=== PATIENT | female | born 2000 | race Asian ===

== ENCOUNTER 2022-03-23 01:28 | Emergency (ER) | payer BC, SELFPAY ==
--- NOTE | ~2022-03-23 | US_ITS ---
EXAMINATION: US PELVIS CLINICAL INFORMATION: Pelvic pain, question ovarian cyst COMPARISON: None TECHNIQUE: Ultrasound of the pelvis is performed transabdominally. Patient refused transvaginal imaging. FINDINGS: Uterus: The uterus is anteverted and measures 6.8 x 2.8 x 4.1 cm. The double wall endometrial thickness is 0.4 mm. The uterus is smooth in contour and has normal myometrial echogenicity. No visible fibroid. Adnexa: Both ovaries are visualized and are normal in appearance. There is normal color flow to the adnexa. There is no pelvic ascites or fluid collection. Right ovary measures 3.0 x 2.1 x 2.0 cm. There is a dominant follicle in the right ovary measuring up to 2.1 cm. Left ovary measures 2.4 x 2.0 x 1.8 cm and appears unremarkable. US/US pelvic complete IMPRESSION: No acute findings identified.
[2022-03-23 01:35] VITALS: BP 123/84; PULSE 84; O2SAT 96
[2022-03-23 01:38] VITALS: BP 114/76; PULSE 77; RESP 16; TEMP 36.8; O2SAT 97; BMI 19.3
[2022-03-23 02:00] LABS: MANUAL DIFF FLAG NO
[2022-03-23 02:07] LABS: Basophils Percent Auto 0.5 % (0-2); Eosinophils Percent Auto 0.6 % (0-4); Hematocrit 39.1 % (37.0-47.0); Imm Gran Abs Auto 0.01 X10*3/uL (0.00-0.03); Imm Gran Pct Auto 0.2 % (0.0-0.4); Lymphocytes Absolute Auto 2.4 X10*3/uL (1.2-4.9); Lymphocytes Percent Auto 36.9 % (20-40); Mean Corpuscular HGB Conc 33.2 g/dl (31.0-35.0); Mean Corpuscular Hemoglobin 29.3 pg (27.0-33.0); Mean Corpuscular Volume 88.1 fL (80.0-98.0); Mean Platelet Volume 9.2 fL (9.4-12.3); Monocytes Absolute Auto 0.5 X10*3/uL (0.1-1.2); Monocytes Percent Auto 7.2 % (2-11); Neutrophils Absolute Auto 3.5 x10*3/uL (2.0-8.3); Neutrophils Percent Auto 54.6 % (45-73); Platelet Count 226 X10*3/uL (160-400); Red Blood Count 4.44 X10*6/uL (4.20-5.50); Red Cell Distribution Width 12.2 % (11.0-16.0); White Blood Count 6.4 X10*3/uL (4.8-10.8)
[2022-03-23 02:22] LABS: Anion Gap 13 (12-20); Blood Urea Nitrogen 15 mg/dL (9-16); Calcium 9.9 mg/dL (8.4-10.2); Carbon Dioxide 25 mmol/L (22-29); Chloride 104 mmol/L (96-108); Creatinine Clr Calc Pharmacy 78.4; Estimated Glomerular Filt Rate > 60; Glucose Random 104 mg/dL (60-115); Potassium 3.5 mmol/L (3.3-5.1); Sodium 138 mmol/L (135-145)
[2022-03-23 02:37] LABS: Appearance Urine Cloudy; Color Urine Yellow; Glucose Urine UA Negative (Negative); Leukocyte Esterase Urine Negative (Negative); Nitrite Urine Negative (Negative); UMIC TRIGGER UACC YES; Urine Blood Trace (Negative); Urine Ketones Negative (Negative); Urine Protein Negative (Neg-Trace)
[2022-03-23 02:39] LABS: UPreg QC Valid YES; Urine Pregnancy NEGATIVE (NEGATIVE)
[2022-03-23 02:40] LABS: Bacteria Urine None Seen (None Seen); Hyaline Casts Urine 0-2 /LPF (0-2); Squamous Epithelial Cell Urine 0-2 /HPF (0-2); WBC Urine 0-5 /HPF (0-5)
[2022-03-23 02:44] LABS: Influenza A PCR NEGATIVE (Negative); Influenza B PCR NEGATIVE (Negative); Resp Syncy Virus RNA Qual PCR NEGATIVE (Negative); SARS COV2 PCR INHOUSE NEGATIVE (Negative)
--- NOTE | 2022-03-23 03:18 | PC.NURSE ---
Patient attends [facility]. T/c received from [employer] to contact them at [phone] at the time of the patient's discharge to arrange transportation [facility].
[2022-03-23 03:24] VITALS: BP 115/72; PULSE 76; RESP 18; TEMP 36.6; O2SAT 97
--- NOTE | 2022-03-23 04:50 | ED_ITS ---
HPI - Abdominal Pain General Chief Complaint: Abdominal Pain Stated Complaint: abd pain Time Seen by Provider: 03/23/22 04:09 Source: patient Mode of arrival: ambulatory Limitations: no limitations History of Present Illness HPI narrative: Patient complaining of lower abdominal pain since 20:00 with nausea no vomiting or diarrhea history of similar pain in the past no workup done no urine symptoms no fever or chills Related Data Previous Rx's Medication Instructions Recorded ibuprofen 600 mg tablet 600 mg PO Q6H PRN fever or pain 03/23/22 #30 tabs Allergies Allergy/AdvReac Type Severity Reaction Status Date / Time No Known Allergies Allergy Verified 03/23/22 01:47 Review of Systems Review of Systems Yes all other systems are reviewed and are negative [facility] Social History Social History Advance Directives: No Advance Directives Information Provided: Yes Physical Exam ED Vital Signs: Vital Signs - 24 hr 03/23/22 01:38 03/23/22 03:24 Temperature 98.2 F 97.9 F Pulse Rate 77 76 Respiratory Rate 16 18 Blood Pressure 114/76 115/72 Pulse Oximetry 97 97 Oxygen Delivery Method Room Air Room Air BMI result Body Mass Index 19.3 Appearance: Alert. Oriented X3. No acute distress. Eyes: No pallor or icterus ENT: Pharynx normal. Oral Mucosa moist Neck: Normal inspection. Neck supple. CVS: Normal heart rate and rhythm. Pulses normal. Respiratory: No respiratory distress. Equal air entry bilateral, no wheezing/rales/rhonchi Abdomen: Soft and mild tenderness in epigastric area. Bowel sounds are present, no mass palpable, no CVA tenderness Skin: Skin warm and dry. Normal skin color. Normal skin turgor. Extremities: No lower extremity edema. No calf tenderness Neuro: Oriented X 3. No motor deficit. Medical Decision Making Medical Decision Making MDM Narrative: Labs stable ultrasound showed 2 cm right ovarian dominant follicle nonhemorrhagic no free fluid discharge patient home on ibuprofen Lab Data [facility] Lab Attestation statement: I reviewed the patient's lab results. 03/23/22 01:55 03/23/22 01:55 Labs: Lab Results 03/23/22 03/23/22 03/23/22 Range/Units 01:55 01:55 01:55 WBC 6.4 (4.8-10.8) X10*3/uL RBC 4.44 (4.20-5.50) X10*6/uL Hgb 13.0 (12.0-16.0) g/dl Hct 39.1 (37.0-47.0) % MCV 88.1 (80.0-98.0) fL MCH 29.3 (27.0-33.0) pg MCHC 33.2 (31.0-35.0) g/dl RDW 12.2 (11.0-16.0) % Plt Count 226 (160-400) X10*3/uL MPV 9.2 L (9.4-12.3) fL Immature Gran % (Auto) 0.2 (0.0-0.4) % Neut % (Auto) 54.6 (45-73) % Lymph % (Auto) 36.9 (20-40) % Colbert % (Auto) 7.2 (2-11) % Eos % (Auto) 0.6 (0-4) % Baso % (Auto) 0.5 (0-2) % Lymph # (Auto) 2.4 (1.2-4.9) X10*3/uL Colbert # (Auto) 0.5 (0.1-1.2) X10*3/uL Eos # (Auto) 0.0 (0.0-0.4) X10*3/uL Baso # (Auto) 0.0 (0.0-0.2) X10*3/uL Abs Immat Gran (auto) 0.01 (0.00-0.03) X10*3/uL Absolute Neuts (auto) 3.5 (2.0-8.3) x10*3/uL Absolute Nucleated RBC 0.000 (0.0-0.012) X10*3/uL Nucleated RBC % (auto) 0.0 (0.0-0.2) /100WBC Sodium 138 (135-145) mmol/L Potassium 3.5 (3.3-5.1) mmol/L Chloride 104 (96-108) mmol/L Carbon Dioxide 25 (22-29) mmol/L Anion Gap 13 (12-20) BUN 15 (9-16) mg/dL Creatinine 0.86 (0.5-1.4) mg/dL Estim Creat Clear Calc 78.4 Estimated GFR > 60 Random Glucose 104 (60-115) mg/dL Calcium 9.9 (8.4-10.2) mg/dL Urine Color Urine Appearance Urine pH (5.0-9.0) Ur Specific Kirby (1.005-1.025) Urine Protein (Neg-Trace) mg/dL Urine Glucose (UA) (Negative) mg/dL Urine Ketones (Negative) mg/dL Urine Blood (Negative) Urine Nitrite (Negative) Ur Leukocyte Esterase (Negative) Urine RBC (0-2) /HPF Urine WBC (0-5) /HPF Ur Squamous Epith Cells (0-2) /HPF Urine Bacteria (None Seen) Hyaline Casts (0-2) /LPF Urine Test (NEGATIVE) Influenza Type A (PCR) NEGATIVE (Negative) Influenza Type B (PCR) NEGATIVE (Negative) RSV RNA Qual (PCR) NEGATIVE (Negative) SARS-CoV-2 RNA (RT-PCR) NEGATIVE (Negative) 03/23/22 03/23/22 Range/Units 02:27 02:27 WBC (4.8-10.8) X10*3/uL RBC (4.20-5.50) X10*6/uL Hgb (12.0-16.0) g/dl Hct (37.0-47.0) % MCV (80.0-98.0) fL MCH (27.0-33.0) pg MCHC (31.0-35.0) g/dl RDW (11.0-16.0) % Plt Count (160-400) X10*3/uL MPV (9.4-12.3) fL Immature Gran % (Auto) (0.0-0.4) % Neut % (Auto) (45-73) % Lymph % (Auto) (20-40) % Colbert % (Auto) (2-11) % Eos % (Auto) (0-4) % Baso % (Auto) (0-2) % Lymph # (Auto) (1.2-4.9) X10*3/uL Colbert # (Auto) (0.1-1.2) X10*3/uL Eos # (Auto) (0.0-0.4) X10*3/uL Baso # (Auto) (0.0-0.2) X10*3/uL Abs Immat Gran (auto) (0.00-0.03) X10*3/uL Absolute Neuts (auto) (2.0-8.3) x10*3/uL Absolute Nucleated RBC (0.0-0.012) X10*3/uL Nucleated RBC % (auto) (0.0-0.2) /100WBC Sodium (135-145) mmol/L Potassium (3.3-5.1) mmol/L Chloride (96-108) mmol/L Carbon Dioxide (22-29) mmol/L Anion Gap (12-20) BUN (9-16) mg/dL Creatinine (0.5-1.4) mg/dL Estim Creat Clear Calc Estimated GFR Random Glucose (60-115) mg/dL Calcium (8.4-10.2) mg/dL Urine Color Yellow Urine Appearance Cloudy Urine pH 7.0 (5.0-9.0) Ur Specific Kirby 1.020 (1.005-1.025) Urine Protein Negative (Neg-Trace) mg/dL Urine Glucose (UA) Negative (Negative) mg/dL Urine Ketones Negative (Negative) mg/dL Urine Blood Trace (Negative) Urine Nitrite Negative (Negative) Ur Leukocyte Esterase Negative (Negative) Urine RBC 3-5 H (0-2) /HPF Urine WBC 0-5 (0-5) /HPF Ur Squamous Epith Cells 0-2 (0-2) /HPF Urine Bacteria None Seen (None Seen) Hyaline Casts 0-2 (0-2) /LPF Urine Test NEGATIVE (NEGATIVE) Influenza Type A (PCR) (Negative) Influenza Type B (PCR) (Negative) RSV RNA Qual (PCR) (Negative) SARS-CoV-2 RNA (RT-PCR) (Negative) Medications Administered Discontinued Medications Generic Name Dose Route Start Last Admin Trade Name Freq PRN Reason Stop Dose Admin Ibuprofen 600 mg 03/23/22 04:51 03/23/22 04:59 Ibuprofen 600 Mg Tablet PO 03/23/22 04:52 600 mg ONCE ONE Administration Ondansetron HCl 4 mg 03/23/22 04:54 03/23/22 04:59 Ondansetron Odt 4 Mg Tab.Rapdis TRANSLINGU 03/23/22 04:55 4 mg ONCE ONE Administration Discharge Plan Discharge Clinical Impression: Ovarian cyst Patient Disposition: Home, Self-Care Instructions: Ovarian Cyst (ED) Additional Instructions: You have small ovarian cyst on the right side as a cause for the pain Take ibuprofen for pain Follow-up with [facility] induction Prescriptions: New ibuprofen 600 mg tablet 600 mg PO Q6H PRN (Reason: fever or pain) Qty: 30 0RF
[2022-03-23] MEDS: Ibuprofen 600 MG TABLET PO (04:59)
[2022-03-23] MEDS: Ondansetron ODT 4 MG TAB.RAPDIS TRANSLINGU (04:59)
--- NOTE | 2022-03-23 08:08 | PC.NURSE ---
Pt awaiting transportation back to [facility]
== END 2022-03-23 09:27 | disposition home or self-care (01) ==
PROVIDERS: Emergency Provider Internal Medicine
DX: N83.01 Follicular cyst of right ovary (principal); R10.30 Lower abdominal pain, unspecified; Z20.822 Contact with and (suspected) exposure to COVID-19; Z20.828 Contact with and (suspected) exposure to other viral communicable diseases
CPT/HCPCS: 0241U; 36415; 76856; 80048; 81001; 81025; 85025; 99284